=== PATIENT | female | born 1985 | race Caucasian/White ===

== ENCOUNTER 2017-02-24 08:22 | Emergency (ER) | payer OTHER ==
[2017-02-24 08:28] VITALS: BP 127/81; PULSE 95; RESP 20; TEMP 98.2; O2SAT 97
--- NOTE | 2017-02-24 08:29 | EDPHY ---
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 - Social History Smoking Status: Never smoked Constitutional: Initial Vital Signs Temperature (C) 36.8 C 02/24/17 08:25 Heart Rate 95 02/24/17 08:25 Respiratory Rate 20 02/24/17 08:25 Blood Pressure 127/81 H 02/24/17 08:25 O2 Sat (%) 97 02/24/17 08:25 O2 Delivery Mode Room Air Allergies/Adverse Reactions: NSAIDS (Non-Steroidal Anti-Inflamma Allergy (Intermediate, Verified 02/24/17 08: 23) Home Medications: Medication Instructions Recorded Coenzyme Q-10 02/24/17 Dicloxacillin Sodium 500 mg PO QID #40 capsule 02/24/17 Metformin 1000 mg 02/24/17 Medical Decision Making ED Course/Re-evaluation: CHIEF COMPLAINT: Swollen left breast HISTORY OF PRESENT ILLNESS: The patient is a 31 y/o female, with a history of mastitis, complaining of left breast pain and redness for the last day. She is currently breast feeding her second child. She has had 3 previous episodes of mastitis that were treated successfully with dicloxacillin. She endorses associated chills, nausea, and headache. She is otherwise healthy. REVIEW OF SYSTEMS: A 10 point review of systems was performed and is negative with the exception of the elements mentioned in the history of present illness. PHYSICAL EXAM: HR, BP, O2 Sat, RR. Temp noted General Appearance: Alert, well hydrated, appropriate, and non-toxic appearing. Head: Atraumatic without scalp tenderness or obvious injury Eyes: Pupils equal, round, reactive to light and accommodation, EOMI, no trauma , no injection. Ears: Clear bilaterally, no perforation, normal landmarks Nose: Atraumatic, no rhinorrhea, clear. Throat: There is no erythema or exudates, no lesions, normal tonsils, mucus membranes moist. Neck: Supple, nontender, no lymphadenopathy. Respiratory: No retractions, no distress, no wheezes, and no accessory muscle use. Lungs are clear to auscultation bilaterally. Cardiovascular: Regular rate and rhythm, no murmurs, rubs, or gallops. Good capillary refill all extremities. Gastrointestinal: Abdomen is soft, nontender, non-distended, no masses, no rebound, no guarding, no peritoneal signs. Musculoskeletal: Normal active ROM of all extremities, atraumatic. Neurological: Alert, appropriate, and interactive. Nonfocal neuro exam. Skin: No rashes, good turgor, no nodules on palpation. Erythema and tenderness to left breast with minor lymphangitis, no nipple discharge. Past medical history: Mastitis, , migraines Past surgical history: tonsillectomy Family history: noncontributory Social history: and infant at bedside. Lives in [place] DIFFERENTIAL DIAGNOSIS: The differential diagnosis for the patient's fever included but was not limited to mastitis, cellulitis, urinary tract infection, viral syndrome, and sepsis. MEDICAL DECISION MAKING: This is a healthy 31 y/o female who is currently nursing and has a history of mastitis presenting with one day of left breast tenderness and swelling. She has been treated successfully in the past for this with dicloxacillin. She has some associated chills and nausea, but is afebrile here. Plan for standard mastitis treatment with dicloxacillin. Standard return precautions given. Departure - Departure Disposition: Home, Routine, Self-Care Clinical Impression: Mastitis Condition: Good Instructions: Dicloxacillin (By mouth), Mastitis (ED) Additional Instructions: 1. Take antibiotic as prescribed. Be sure to complete entire prescription even if symptoms have resolved. 2. Take Tylenol as directed on the packaging if needed for fever or pain. 3. Follow up with your primary care provider for unimproved symptoms over the next week. 4. Return to the ED for dramatically worsening symptoms. Referrals: Emy Parker MD [Primary Care Provider] - As per Instructions Prescriptions: Dicloxacillin Sodium 500 mg PO QID #40 capsule Report Scribed for: Srini Marin Report Scribed by: Sandy Rea Date of Report: 02/24/17 Time of Report: 08:36
== END 2017-02-24 08:45 | disposition home or self-care (01) ==
DX: N61.0 Mastitis without abscess (principal)

== ENCOUNTER → 2017-03-21 | Outpatient (CLI) | payer OTHER | LOC: FIMAGING 13:11 | PROVIDERS: ATTEND Obstetrics & Gynecology | DX: N61.0 Mastitis without abscess (principal) ==

== ENCOUNTER → 2017-03-26 | Outpatient (CLI) | payer OTHER | LOC: FIMAGING 12:52 | PROVIDERS: ATTEND Midwife | DX: N61.0 Mastitis without abscess (principal) ==

== ENCOUNTER → 2017-10-01 | Outpatient (CLI) | payer OTHER ==
[~2017-10-01] MED LIST: GADOBUTROL 10 ML VIAL IVP ONE
== END ==
LOC: FIMAGING 19:34
PROVIDERS: ATTEND Psychiatry & Neurology Neurology
DX: E34.8 Other specified endocrine disorders (principal); R93.8 Abnormal findings on diagnostic imaging of other specified body structures
CPT/HCPCS: A9585

== ENCOUNTER → 2017-10-09 | Outpatient (CLI) | payer OTHER | LOC: FIMAGING 07:56 | PROVIDERS: ATTEND Internal Medicine | DX: R79.89 Other specified abnormal findings of blood chemistry (principal) ==

== ENCOUNTER → 2017-12-18 | Outpatient (CLI) | payer OTHER ==
--- NOTE | 2017-12-19 09:01 | CPEEG ---
[f rep st] ELECTROENCEPHALOGRAM DATE OF STUDY: 12/18/2017 INTERPRETATION: Normal EEG during wakefulness and sleep. There were no potentially epileptogenic ab normalities present during recording. REPORT: This EEG contained sparse, low amplitude 10-11 Hz alpha activity to the posterior head regio ns. There was no abnormal activation at rest, during photic stimulation or hyperventilation. The davidson murillo became drowsy and fell asleep during the study. There was no abnormal activation during drowsi ness, sleep or during times of arousal. /[id number]/MODL
== END ==
LOC: FCPNEURO 11:24
PROVIDERS: ATTEND Psychiatry & Neurology Neurology
DX: R40.4 Transient alteration of awareness (principal)

== ENCOUNTER → 2018-03-14 | Outpatient (CLI) | payer OTHER | LOC: BMCIMAGING 08:36 | PROVIDERS: ATTEND Emergency Medicine | DX: J40 Bronchitis, not specified as acute or chronic (principal) ==